=== PATIENT | male | born 1950 ===

== ENCOUNTER → 2018-12-07 20:51 | Outpatient (REF) | payer SELFPAY ==
[2018-12-07 22:52] LABS: Urine N gonorrhoeae NOT DETECTED
[2018-12-07 22:53] LABS: Urine Chlamydia NOT DETECTED
== END ==
LOC: LAB 20:51
PROVIDERS: Visit Provider Nurse Practitioner Acute Care
DX: Z11.3 Encounter for screening for infections with a predominantly sexual mode of transmission (principal)
CPT/HCPCS: 87086; 87491; 87591